=== PATIENT | male | born 1975 | race Caucasian/White ===

== ENCOUNTER 2017-01-11 02:06 | Observation (INO) | payer SELFPAY ==
[2017-01-11] MEDS ORDERED: ONDANSETRON 4 MG/2 ML VIAL IVP ONE (02:16)
[2017-01-11] MEDS ORDERED: NS 1,000 ML IV ONE ×2 (02:16→03:07)
--- NOTE | 2017-01-11 02:16 | EDPHY ---
H & P Stated Complaint: N/V/D X 2 WEEKS HPI/ROS: HPI CHIEF COMPLAINT: Nausea, vomiting, diarrhea x2 weeks abdominal pain HISTORY OF PRESENT ILLNESS: This patient 41-year-old male, otherwise healthy no significant medical history does not take any daily medications he is visiting [facility] from [place]. He evacuated from the [facility] in [place]. He has been here in [place] for 2 weeks. Ever since arriving he has had nausea vomiting and diarrhea. He now developed abdominal pain over the past few days. Diffuse abdominal bloating and cramping. He denies diarrhea being bilious or bloody. Denies vomiting being bloody. He states he gets really bad after he eats or drinks anything. Symptoms have been persistent for 2 weeks. Denies chest pain or shortness of breath. He does complain of generalized weakness. Past Medical History: Denies medical history Past Surgical History: Denies surgical history Social History: Smokes marijuana, denies illicit drugs or alcohol. Family History: Noncontributory ROS REVIEW OF SYSTEMS: A comprehensive 10 point review of systems is otherwise negative aside from elements mentioned in the history of present illness. Exam Constitutional appears well nontoxic triage nursing summary reviewed, vital signs reviewed, awake/alert. Eyes normal conjunctivae and sclera, EOMI, PERRLA. HENT normal inspection, atraumatic, moist mucus membranes, no epistaxis, neck supple/ no meningismus, no raccoon eyes. Respiratory clear to auscultation bilaterally, normal breath sounds, no respiratory distress, no wheezing. Cardiovascular rate normal, regular rhythm, no murmur, no edema, distal pulses normal. Gastrointestinal soft, mild tenderness to palpation diffusely no peritoneal signs, no rebound, no guarding, normal bowel sounds, no distension, no pulsatile mass. Genitourinary no CVA tenderness. Musculoskeletal no midline vertebral tenderness, full range of motion, no calf swelling, no tenderness of extremities, no meningismus, good pulses, neurovascularly intact. Skin pink, warm, & dry, no rash, skin atraumatic. Neurologic awake, alert and oriented x 3, AAOx3, moves all 4 extremities equally, motor intact, sensory intact, CN II-XII intact, normal cerebellar, normal vision, normal speech. Psychiatric normal mood/affect. Heme/Lymph/Immune no lymphadenopathy. Differential diagnosis includes but is not limited to and in no particular order : Colitis, C diff, Bowel obstruction, appendicitis, gallbladder disease, diverticulitis, colitis, enteritis, perforated viscus, gastritis, GERD, esophagitis, urinary tract infection, pyelonephritis, kidney stones Medical Decision Making: Plan for this patient IV establishment with IV fluid bolus, stool studies, electrolytes, CT scan abdomen pelvis with IV contrast rule out significant inflammatory bowel disease and re-evaluation. 1 L normal saline for IV hydration, Zofran for nausea. Re-evaluate. Re-evaluation: [id number]: CT scan abdomen pelvis with IV contrast reviewed. No inflammation of the colon. However has extensive lymphadenopathy consistent with acute mesenteric lymphadenitis. Given the amount of diarrhea this patient is having volume depletion abdominal pain I will admitted to the hospital. Reason for admission dehydration ongoing diarrhea abdominal pain. Patient admitted to Dr. Murdock. Source: Patient - Personal History Current Tetanus Diphtheria and Acellular Pertussis (TDAP): Yes - Medical/Surgical History Hx Asthma: No Hx Chronic Respiratory Disease: No Hx Diabetes: No Hx Cardiac Disease: No Hx Renal Disease: No Hx Cirrhosis: No Hx Alcoholism: No Hx HIV/AIDS: No Hx Splenectomy or Spleen Trauma: No Other PMH: DENIES - Social History Smoking Status: Never smoked Constitutional: Initial Vital Signs Temperature (C) 36.6 C 01/11/17 02:11 Heart Rate 103 H 01/11/17 02:11 Respiratory Rate 18 01/11/17 02:11 Blood Pressure 121/81 H 01/11/17 02:11 O2 Sat (%) 94 01/11/17 02:11 O2 Delivery Mode Room Air Allergies/Adverse Reactions: No Known Allergies Allergy (Verified 01/11/17 08:11) Home Medications: Medication Instructions Recorded NK [No Known Home Meds] 01/11/17 Medical Decision Making - Data Points Laboratory Results: Laboratory Results 01/11/17 02:30 01/11/17 02:30 Microbiology Results: MICROBIOLOGY 01/11/17 02:30 Stool Gastrointestinal Tract Panel (PCR) - Final Giardia Lamblia Medications Given: Discontinued Medications Hydromorphone HCl (Dilaudid) 1 mg IVP EDNOW ONE Stop: 01/11/17 03:48 Last Admin: 01/11/17 04:08 Dose: 1 mg Sodium Chloride (Ns) 1,000 mls @ 0 mls/hr IV EDNOW ONE; Wide Open PRN Reason: Protocol Stop: 01/11/17 02:17 Last Admin: 01/11/17 02:38 Dose: 1,000 mls Sodium Chloride (Ns) 1,000 mls @ 0 mls/hr IV ONCE ONE PRN Reason: Wide Open Stop: 01/11/17 03:08 Last Admin: 01/11/17 03:11 Dose: 1,000 mls Ondansetron HCl (Zofran) 4 mg IVP EDNOW ONE Stop: 01/11/17 02:17 Last Admin: 01/11/17 02:38 Dose: 4 mg Promethazine HCl (Phenergan) 6.25 mg IVP ONCE ONE Stop: 01/11/17 03:59 Last Admin: 01/11/17 04:05 Dose: 6.25 mg Departure - Departure Disposition: [facility] Acute Clinical Impression: Diarrhea Qualifiers: Diarrhea type: unspecified type Qualified Code(s): R19.7 - Diarrhea, unspecified Condition: Fair
[2017-01-11] MEDS ORDERED: IOPAMIDOL (ISOVUE-300) 100 ML BTL ONE (02:43)
[2017-01-11 02:48] LABS: % IMMATURE GRANULYOCYTES 0.6 % (0.0-1.1); ABSOLUTE IMMATURE GRANULOCYTES 0.08 10^3/uL (0.00-0.10); ADD DIFF? NO; ADD MORPH? NO; ADD SCAN? NO; ATYPICAL LYMPHOCYTE FLAG 20 (0-99); FRAGMENT RBC FLAG 0 (0-99); HEMATOCRIT 46.9 % (40.0-51.0); HEMOGLOBIN 16.1 g/dL (13.7-17.5); LEFT SHIFT FLG 20 (0-99); LIPEMIA HEMOLYSIS FLAG 90 (0-99); MEAN CELL HEMOGLOBIN 29.7 pg (27.9-34.1); MEAN CELL HEMOGLOBIN CONCENTR. 34.3 g/dL (32.4-36.7); MEAN CELL VOLUME 86.4 fL (81.5-99.8); MEAN PLATELET VOLUME 11.6 fL (8.7-11.7); PLATELET CLUMPS FLAG 0 (0-99); PLATELET COUNT 286 10^3/uL (150-400); RED BLOOD CELL COUNT 5.43 10^6/uL (4.40-6.38); RED CELL DISTRIBUTION WIDTH 13.1 % (11.5-15.2)
[2017-01-11 02:58] LABS: INR 0.91 (0.83-1.16); PROTIME(PATIENT) 12.2 SEC (12.0-15.0)
[2017-01-11 02:59] LABS: APTT 26.7 SEC (23.0-38.0)
[2017-01-11 03:02] LABS: ALANINE AMINOTRANSFERASE 39 IU/L (21-72); ALBUMIN 4.3 g/dL (3.5-5.0); ALKALINE PHOSPHATASE 80 IU/L (38-126); ANION GAP 15 mEq/L (8-16); ASPARTATE AMINOTRANSFERASE 17 IU/L (17-59); BILIRUBIN-CONJUGATED 0.3 mg/dL (0.0-0.5); BILIRUBIN-UNCONJUGATED 0.7 mg/dL (0.0-1.1); CALCIUM 9.3 mg/dL (8.5-10.4); CARBON DIOXIDE 23 mEq/l (22-31); CHLORIDE 103 mEq/L (97-110); CREATININE 1.1 mg/dL (0.7-1.3); GLOMERULAR FILTRATION RATE > 60; GLUCOSE 96 mg/dL (70-100); POTASSIUM 4.2 mEq/L (3.5-5.2); SODIUM 141 mEq/L (134-144); TOTAL PROTEIN 6.9 g/dL (6.3-8.2)
[2017-01-11 03:16] LABS: COLOR YELLOW; LEUKOCYTE ESTERASE,URINE NEGATIVE (NEGATIVE); NITRITE,URINE NEGATIVE (NEGATIVE)
[2017-01-11] MEDS ORDERED: HYDROmorphONE/DILAUDID 1 MG/ML INJ IVP ONE (03:47)
[2017-01-11] MEDS ORDERED: PROMETHAZINE HCL 25 MG/ML INJ IVP ONE (03:58)
[2017-01-11 04:11] VITALS: RESP 16
[2017-01-11 07:49] VITALS: BP 124/76; PULSE 93; TEMP 98.4; O2SAT 91
[2017-01-11] MEDS ORDERED: ONDANSETRON DISINTEGRATING 4 MG TAB PO PRN (09:23)
[2017-01-11] MEDS ORDERED: ACETAMINOPHEN 325 MG TAB PO PRN (09:23)
[2017-01-11] MEDS ORDERED: ONDANSETRON 4 MG/2 ML VIAL IVP PRN (09:23)
--- NOTE | 2017-01-11 12:47 | ASDISCHSUM ---
Discharge Information Plan Status: Medically Cleared to Leave:01/11/2017 Discharge Date:01/11/2017 09:48 AM CM D/C Disposition: ADT D/C Disposition:Against Medical Advice Projected Discharge Date:01/11/2017 12:00 AM Transportation at D/C: Discharge Delay Reason: Follow-Up Date:01/11/2017 12:00 AM Discharge Slot: Final Diagnosis: Placement Information Patient Contact Information Contact Name:MELANIE Relationship:Other Address: Work Phone: City: [facility] Phone: State/Zip Code: Email: Financial Information Financial Class:Self-Pay Primary Plan Desc:SELF PAY Primary Plan Number: Secondary Plan Desc: Secondary Plan Number: Assessment Information Intervention Information
== END 2017-01-11 09:48 | disposition left against medical advice (07) ==
LOC: INTOOBSV 03:50 → F2W 07:40
PROVIDERS: ADMIT Family Medicine; ATTEND Family Medicine
DX: E86.0 Dehydration (principal); R19.7 Diarrhea, unspecified; F12.90 Cannabis use, unspecified, uncomplicated
CPT/HCPCS: 96374; G0378; J1170; J2405; J2550; Q9967